=== PATIENT | female | born 1985 | race Caucasian/White ===

== ENCOUNTER → 2018-01-25 09:40 | Outpatient (CLI) | payer OTHER, SELFPAY ==
[2018-01-26 14:22] LABS: Chlamydia Trachomatis by PCR Negative (Negative); Neisserai gonorrhoeae by PCR Negative (Negative); Probe Check PASS; Sample Adequacy Control PASS; Specimen Processing Control PASS
[2018-01-28 13:17] LABS: HPV Reflexed? NOT INDICATED
== END ==
PROVIDERS: Visit Provider Obstetrics & Gynecology
DX: Z12.4 Encounter for screening for malignant neoplasm of cervix (principal); Z11.3 Encounter for screening for infections with a predominantly sexual mode of transmission
CPT/HCPCS: 87491; 87591; 88175; G0145

== ENCOUNTER 2019-10-05 10:00 | Day surgery (SDC) | payer SELFPAY, OTHER ==
--- NOTE | 2019-10-04 14:53 | HP.PCM_ITS ---
History and Physical Date of Admission: 10/05/19 Surgical History and Physical Sheila Singer, a 33 year old female 3 1 1 0 3, presents for on 10/05/19. -- Inevitable Miscarriage -- 11 week gestational sac and 8 week IUP without FHTs. Decided she wants to proceed with Suction D and E. MEDICATIONS HISTORY: ALLERGIES: NKDA Infections - Chicken pox childhood Illnesses - no serious past illnesses Accidents - None Hospitalizations - Childbirth Review of Systems: GENERAL - Denies fever, or chills SKIN - Denies skin changes EYES - Denies visual changes EARS - Denies difficulty hearing NOSE - Denies nasal congestion or bleeding MOUTH - Denies sore throat or difficulty swallowing NECK - Denies pain or swelling RESPIRATORY - Denies shortness of breath or wheezing CARDIOVASCULAR - Denies palpitations or chest pain GASTROINTESTINAL - Denies nausea, vomiting, diarrhea, constipation GENITOURINARY - Denies dysuria, frequency of urination, incontinence of urine MUSCULOSKELETAL - Denies joint or muscle pain NEUROLOGICAL - Denies localized numbness or weakness PSYCHIATRIC - Denies depression or anxiety ENDOCRINE - Denies heat or cold intolerance, weight loss or gain HEMATO-IMMUNOLOGIC - Denies excesive bleeding with cuts SOCIAL HISTORY: Alcohol Use - None Smoking - denies smoking Diet - balanced Diet Lifestyle - moderate stress lifestyle and Exercise - walking Seat Belt Use - occasional Employer - Unemployed Illicit Drug Use - denies use of street drugs Sexual Activity - Spouse-Sig Other Name - Paramjit Spouse-Sig Other Occupation - [employer] Spouse-Sig Other Phone No - (w) [phone] Children Name(s) - Kavon -- 22 wks gestation (2008) Sophia 02-23-2010,Mikel 08/17, [employer] Control - FAMILY HISTORY: Paternal history of Paternal Uncles x 3 -- Hemophillia. Father: Hemophillia. Paternal Grandmother: Colon Cancer. Paternal Grandfather: Colon Cancer. MENSTRUAL HISTORY: LMP Known?- Yes, LMP - 07/13/19, Age Onset Menarche - 10 PAST PREGNANCIES: Total Pregnancies - 6; Full Term Pregnancies - 3; Premature - 1; Abortions, Induced - 0; Abortions, Spontaneous - 1; Ectopics - 0; Multiple Births - 0; Living Children - 3 SURGICAL HISTORY: 1. 02/09/2012 cervical cerclage ; Burak Brock M.D. - 2. 11/05/2015 cervical cerclage ; Burak Brock M.D. - PHYSICAL EXAM BP- 120/70 Sitting, Right arm, regular cuff Weight- 126.18276 lbs Height- 65.50 inch BMI:20.69 CONSTITUTIONAL - NAD, well nourished, and well developed NEUROLOGICAL - Cranial nerves II-XII grossly intact PSYCHIATRIC - A and O to time, place, person, mood and affect External Genitial Vagina - non-tender without lesions Urethra/Urethral Meatus - non-tender Bladder - non-tender Vagina - vaginal gold are pink and moist without loss of rugae and no evidence of atropy Cervix - without cervical motion tenderness and has normal size and features without evident lesions Uterus - enlarged uterus 12 wks, wt 280-320 g Adnexa - clear without massess or tenderness ASSESSMENT/PLAN: 1. Spontaneous Abort [employer] Denies any bleeding but initially wanted expectant managment. Now desires to proceed with Suction D and E. Duscyssed RBAs and all questions answered. Essential Procedure Criteria Procedure Essential: Yes Criteria Note: On 08/22/2019 the [place] Department of Health ([facility]) Public Order signed by [facility] Director María Whitehead M.D., regarding the Management of Non- Essential Surgeries and Procedures for the purpose of preserving Personal Protective Equipment (PPE) and critical hospital capacity and resources within [place] went into effect as of 08/23/2019 at 5:00PM. According to the [facility] Public Order: This action will remain in full force and effect until the State of Emergency declared by the Governor no longer exists or the Director of the [facility] rescinds or modifies this Order.. This [facility] order stated all non-essential or elective surgeries and procedures that utilize PPE should be delayed unless there is undue risk to the current or future health of a patient. After reviewing the aforementioned [facility] Public Order and the patients clinical case, I have determined that the scheduled procedure meets the criteria to go forward. Risk to Patient if Procedure Delayed: Risk of rapidly worsening to severe symptoms if delayed
[2019-10-05 10:47] VITALS: BP 112/74; PULSE 73; RESP 18; TEMP 37.1; O2SAT 100; BMI 19.6
[2019-10-05] MEDS: Lactated Ringers 1,000 ML 100 ML IV (10:55)
[2019-10-05 11:00] LABS: Hematocrit 37.7 % (37-47); Hemoglobin 12.9 g/dL (12.0-15.0); Mean Corp Hgb Conc 34.2 g/dL (32-36); Mean Corpuscular Volume 87.7 fL (81-99); Mean Platelet Vol. 9.6 fl (6.2-12.0); Platelet Count 205 K/mm3 (150-450); RBC Distribution Width CV 12.5 % (11.6-14.6); RBC Distribution Width SD 40.1 fl (35.1-43.9); White Blood Count 5.8 K/mm3 (4.4-11.0)
--- NOTE | 2019-10-05 12:00 | POC_PTH ---
PATIENT: YOLANDE MCKENNA LOC: [facility] [place] U#:[id number] AGE/SX: 33/F ROOM: RE10/05/[address]: Dr. Burak Brock MD : 1985 BED: DIS: 10/05/2019 SPEC #: [id number] RECD: 10/05/19 13:59 STATUS: XIANG REAllyn #: [id number] [place]: 10/05/19 12:[address]: Burak Brock DEPT: SURGICAL PATHOLOGY RECD BY: Stew Carter ENTERED: 10/06/19 10:16 SP TYPE: PROD CONC OTHR DR: Dr. Pancho Saxena MD Tissues: Product of conception, NOS Procedures: Surgery Specimen Level IV HEADER OPERATION: Suction dilation and curettage PRE-OP DIAGNOSIS: Spontaneous TISSUE SUBMITTED: Products of conception MICROSCOPIC DIAGNOSIS Endometrium, curettage: Chorionic villi, decidualized stroma and trophoblastic cells consistent with products of conception. AM:seamus 10/09/19 MICROSCOPIC DESCRIPTION Slides are reviewed. GROSS DESCRIPTION Received in fixative is one container labeled with the patient's name and designated products of conception. The specimen consists of multiple irregular fragments of maldonado-pink to red soft tissue that in aggregate measure 8 x 8 x 2.5 cm. tissue is not identified. Brush Material Preparer tissue is submitted in two cassettes. / SJ:seamus 10/06/19 TC:5 CPT: 04895
--- NOTE | 2019-10-05 12:32 | PCM.OPRPT ---
Report of Operation Date of Procedure: 10/05/19 Pre-Operative Diagnosis: Inevitable Miscarriage Post-Operative Diagnosis: Inevitable Miscarriage Surgery/Procedure Performed:: Suction Dilation and Curettage Description of Surgical Findings:: 10 cm endometrial cavity with products of conception present. Type of Anesthesia:: MAC Anesthesiologist: Davi Bell Specimen's removed: Products of conception Estimated Blood Loss (mL): Minimal Fluids Replaced: Crystalloid Description of Procedure: Surgeon: Burak Brock MD, FACOG Indication: 33 year old patient with incomplete AB at 11 weeks gestation with a 8 week IUP without FHTs. Pt has been counseled regarding the risks, benefits, and alternatives of this procedure and all questions were answered. Procedure: Patient was taken to the operating room where she was given IV sedation. The patient was prepped and draped in the usual sterile fashion. The anterior cervix was grasped with a tenaculum and cervix was dilated. An 10 mm suction curette was inserted into the cervix and all contents removed. Uterus was gently curetted and remaining tissue was removed by reinserting the suction curette. The patient tolerated the procedure well and was taken to the recovery room in satisfactory condition. Sponge, instruments and needle counts were all correct. There were no apparent complications of the surgery. Grafts/Implants Used: None - Complications None - Admit VTE Documentation VTE Present on Admission: Yes VTE Mechan Device Prophylaxis: SCD's
--- NOTE | 2019-10-05 12:44 | DCINST_ITS ---
Discharge Diet: No Restrictions Discharge Activity: Return to Normal Activity, May Shower, May Take a Tub Bath May resume sexual activity in: 2 weeks Call your doctor if you observe: Fever of 101 or Higher, Inability to urinate, Inability to have a bowel movement, Using more than one pad per hour Allergies/Adverse Reactions: Allergies No Known Allergies Allergy (Verified 10/05/19 10:44) Medications to take at Discharge Multivitamin [Multivitamins] 1 ea PO DAILY 10/04/19 Primary Care Physician: Pancho Saxnea MD [Primary Care Provider] - Test Results: Test results from this visit will be discussed in further detail at your follow- up appointment, if applicable. Please Follow Up With: Burak Brock MD When: 2-3 weeks
[2019-10-05 12:54] VITALS: BP 108/68; BP 112/74; PULSE 59; RESP 16; TEMP 36.4; O2SAT 96
[2019-10-05 12:59] VITALS: BP 106/65; BP 112/74; PULSE 64; RESP 16; O2SAT 96
[2019-10-05 13:04] VITALS: BP 108/67; BP 112/74; PULSE 69; RESP 16; O2SAT 97
[2019-10-05 13:09] VITALS: BP 110/66; BP 112/74; PULSE 60; RESP 16; TEMP 36.7; O2SAT 96
[2019-10-05 14:19] VITALS: BP 112/74
== END 2019-10-05 14:20 | disposition home or self-care (01) ==
LOC: SDC 10:05 → AC 10:06
PROVIDERS: PCP Orthopaedic Surgery; Referring Provider Obstetrics & Gynecology; Visit Provider Obstetrics & Gynecology
PROC: (CPT 59812; principal; 2019-10-05 11:45)
DX: O03.4 Incomplete spontaneous abortion without complication (principal); Z3A.11 11 weeks gestation of pregnancy
CPT/HCPCS: 59812; 85027; 86850; 86900; 86901; 88305; J7120; J2405